=== PATIENT | female | born 1970 | race Hispanic/Latino ===

== ENCOUNTER → 2018-03-22 | Outpatient (CLI) | payer MEDICAID ==
[~2018-03-22] MED LIST: ALBUTEROL IH; ATOR10TA69 PO; BENZ-17 PO; CETI10TA57 PO; DIPH25CA7 PO; FLUT250D3 IH; IPRATROPIUM BROMIDE NEB; METF500T6 PO; MOME17N NASAL; MONT10TA24 PO; PROVENTIL HFA PUFF; TRAZ-185 PO
== END | disposition home or self-care (01) ==
LOC: RAH 07:38
PROVIDERS: ATTEND Family Medicine
DX: R92.2 Inconclusive mammogram (principal)
CPT/HCPCS: 77066

== ENCOUNTER 2019-03-22 06:35 | Day surgery (SDC) | payer MEDICAID ==
[2019-03-22] VITALS (7 sets, daily range): BP systolic 93–111; BP diastolic 60–68
[~2019-03-22] VITALS: Ht 162.6 cm; Wt 86.6 kg
[~2019-03-22 06:35] MED LIST changes: +LIDOCAINE HCL 1% 20 ML VIAL ONE; +METF-444 PO; -METF500T6 PO; +PROPOFOL 1000 MG/100 ML 100 ML IV ONE; +SODIUM CHLORIDE 0.9% 1000ML 1,000 ML IV ONE
[2019-03-22] MEDS ORDERED: TIZA4CAP8 PO (07:33)
[2019-03-22] MEDS ORDERED: PROPOFOL 10 MG/ML 20ML VIAL IV ONE (08:45)
== END 2019-03-22 09:35 | disposition home or self-care (01) ==
LOC: ENDO 06:35 → DAH 06:35 → ENDO 09:35
PROVIDERS: ATTEND Internal Medicine Gastroenterology
DX: Z12.11 Encounter for screening for malignant neoplasm of colon (principal); K29.50 Unspecified chronic gastritis without bleeding; K44.9 Diaphragmatic hernia without obstruction or gangrene; D12.3 Benign neoplasm of transverse colon; R12 Heartburn; Z86.010 Personal history of colon polyps; Z68.32 Body mass index [BMI] 32.0-32.9, adult; E11.9 Type 2 diabetes mellitus without complications; J45.909 Unspecified asthma, uncomplicated; E66.9 Obesity, unspecified; E78.5 Hyperlipidemia, unspecified; Z79.899 Other long term (current) drug therapy; Z79.84 Long term (current) use of oral hypoglycemic drugs; Z98.890 Other specified postprocedural states; Z80.0 Family history of malignant neoplasm of digestive organs; Z83.3 Family history of diabetes mellitus; Z88.8 Allergy status to other drugs, medicaments and biological substances; K21.9 Gastro-esophageal reflux disease without esophagitis
CPT/HCPCS: 43239; 45380; 45385; 82948 ×2; 88305; A4606; J2704 ×2; J7030; 44389

== ENCOUNTER → 2019-04-11 | Outpatient (CLI) | payer MEDICAID ==
[~2019-04-11] MED LIST changes: -BENZ-17 PO; -LIDOCAINE HCL 1% 20 ML VIAL ONE; -PROPOFOL 1000 MG/100 ML 100 ML IV ONE; -SODIUM CHLORIDE 0.9% 1000ML 1,000 ML IV ONE; +TIZA4CAP8 PO
== END | disposition home or self-care (01) ==
LOC: RAH 10:52
PROVIDERS: ATTEND Obstetrics & Gynecology
DX: Z12.31 Encounter for screening mammogram for malignant neoplasm of breast (principal)
CPT/HCPCS: 77067

== ENCOUNTER → 2020-06-07 | Outpatient (CLI) | payer MEDICAID ==
[~2020-06-07] MED LIST changes: +DIPH25CA53 PO; -DIPH25CA7 PO; -MONT10TA24 PO; +MONT10TA26 PO
== END | disposition home or self-care (01) ==
LOC: RAH 08:45
PROVIDERS: ATTEND Family Medicine
DX: R92.1 Mammographic calcification found on diagnostic imaging of breast (principal); R92.2 Inconclusive mammogram
CPT/HCPCS: 77066

== ENCOUNTER → 2021-07-11 | Outpatient (CLI) | payer MEDICAID ==
[~2021-07-11] MED LIST changes: +FLUT250D2 IH; -FLUT250D3 IH; -MONT10TA26 PO; +MONT10TA32 PO
== END | disposition home or self-care (01) ==
LOC: RAH 10:34
PROVIDERS: ATTEND Family Medicine
DX: Z12.31 Encounter for screening mammogram for malignant neoplasm of breast (principal)
CPT/HCPCS: 77067

== ENCOUNTER → 2022-07-14 | Outpatient (CLI) | payer MEDICAID ==
[~2022-07-14] MED LIST changes: +MONT-39 PO; -MONT10TA32 PO
== END | disposition home or self-care (01) ==
LOC: RAH 13:26
PROVIDERS: ATTEND Family Medicine
DX: Z12.31 Encounter for screening mammogram for malignant neoplasm of breast (principal)
CPT/HCPCS: 77067

== ENCOUNTER → 2023-09-14 | Outpatient (CLI) | payer MEDICAID | END | disposition home or self-care (01) | LOC: RAH 11:22 | PROVIDERS: ATTEND Obstetrics & Gynecology | DX: Z12.31 Encounter for screening mammogram for malignant neoplasm of breast (principal) | CPT/HCPCS: 77067 ==